=== PATIENT | male | born 1990 ===

== ENCOUNTER 2019-03-25 08:12 | Inpatient (IN) | payer MEDICAID ==
[~2019-03-25] VITALS: Ht 175.3 cm; Wt 59.4 kg
[2019-03-25 08:21] VITALS: Ht 175.3 cm; Wt 59.4 kg
[2019-03-25 10:01] LABS: CALCIUM 8.5 mg/dL (8.5-10.1); CARBON DIOXIDE 27.9 mmol/L (21-32); CHLORIDE SERUM 102 mmol/L (98-107); CREATININE SERUM 0.9 mg/dL (0.7-1.3); GFR1 > 60 mL/min; GLUCOSE SERUM 81 mg/dL (74-106); POTASSIUM SERUM 3.7 mmol/L (3.5-5.1); SODIUM SERUM 141 mmol/L (136-145)
[2019-03-25 10:08] LABS: ALBUMIN 4.4 g/dL (3.4-5.0); ALKALINE PHOSPHATASE 67 U/L (46-116); ALT/SGPT 60 U/L (16-63); AST/SGOT 36 U/L (15-37); BILIRUBIN TOTAL 2.5 mg/dL (0.20-1.00); TOTAL PROTEIN, SERUM 7.8 g/dL (6.4-8.2)
[2019-03-25 10:11] LABS: BASOPHIL % 0.4 % (0-2); PLATELET COUNT 188 x10^3mcL (130-400); RED CELL DISTRIBUTION WIDTH 13.2 % (11.5-14.5)
[2019-03-26 07:30] LABS: AMPHETAMINE QUAL UR POSITIVE (See below)
[2019-03-26 13:31] VITALS: BP 116/68
[2019-03-26 14:39] VITALS: BP 116/68
[2019-03-26 17:18] VITALS: BP 100/53
== END 2019-03-26 18:14 | DRG 756 ==
LOC: ED 08:12 → MU 03-26 10:50
PROVIDERS: Emergency Medicine; ADMIT General Practice
DX: R45.851 Suicidal ideations (principal); G92 Toxic encephalopathy; F15.10 Other stimulant abuse, uncomplicated; H92.02 Otalgia, left ear; F17.210 Nicotine dependence, cigarettes, uncomplicated
CPT/HCPCS: 82962; G0378; G0480; J7030